=== PATIENT | female | born 1975 | race Caucasian/White ===

== ENCOUNTER → 2017-01-05 | Outpatient (CLI) | payer BC ==
--- NOTE | 2017-01-05 15:40 | RAD ---
Cervical spine, 3 views, 01/05/2017: History: Neck pain radiating down the left arm The cervical vertebral heights are well-maintained. The intervertebral disc spaces are well preserved. No fracture or dislocation is identified. The prevertebral soft tissues are unremarkable. IMPRESSION: No significant cervical spine abnormality is detected.
== END | disposition home or self-care (01) ==
LOC: DXRAD 13:56
PROVIDERS: ATTEND Psychiatry & Neurology Neurology
DX: M54.2 Cervicalgia (principal)
CPT/HCPCS: 72040